=== PATIENT | male | born 1945 | race Caucasian/White ===

== ENCOUNTER 2017-04-26 08:29 | Outpatient (CLI) | payer MEDICARE, OTHER ==
[2017-04-26 12:40] LABS: INR 2.1 (0.8-1.2); PT - PROTHROMBIN TIME 23.8 secs (9.9-12.6)
== END 2017-04-26 08:30 | disposition home or self-care (01) ==
LOC: LAB.F 08:29
PROVIDERS: ATTEND Internal Medicine Interventional Cardiology
DX: I34.8 Other nonrheumatic mitral valve disorders (principal)
CPT/HCPCS: 36415; 85610

== ENCOUNTER 2017-05-10 07:46 | Outpatient (CLI) | payer MEDICARE, OTHER | END 2017-05-10 07:47 | disposition home or self-care (01) | LOC: LAB.F 07:46 | PROVIDERS: ATTEND Internal Medicine Interventional Cardiology | DX: I34.8 Other nonrheumatic mitral valve disorders (principal); Z79.01 Long term (current) use of anticoagulants | CPT/HCPCS: 85610 ==

== ENCOUNTER 2017-06-08 07:51 | Outpatient (CLI) | payer MEDICARE, OTHER | END 2017-06-08 07:52 | disposition home or self-care (01) | LOC: LAB.F 07:51 | PROVIDERS: ATTEND Internal Medicine Interventional Cardiology | DX: I34.8 Other nonrheumatic mitral valve disorders (principal); Z79.01 Long term (current) use of anticoagulants | CPT/HCPCS: 85610 ==

== ENCOUNTER 2017-11-16 08:28 | Outpatient (CLI) | payer MEDICARE, OTHER | END 2017-11-16 08:29 | disposition home or self-care (01) | LOC: LAB.F 08:28 | PROVIDERS: ATTEND Internal Medicine Interventional Cardiology | DX: I34.8 Other nonrheumatic mitral valve disorders (principal); Z79.01 Long term (current) use of anticoagulants | CPT/HCPCS: 85610 ==

== ENCOUNTER 2018-03-12 08:41 | Outpatient (CLI) | payer MEDICARE, OTHER | END 2018-03-12 08:42 | disposition home or self-care (01) | LOC: LAB.F 08:41 | PROVIDERS: ATTEND Internal Medicine Interventional Cardiology | DX: I34.8 Other nonrheumatic mitral valve disorders (principal); Z79.01 Long term (current) use of anticoagulants | CPT/HCPCS: 85610 ==

== ENCOUNTER 2020-04-21 09:59 | Outpatient (CLI) | payer MEDICARE, OTHER | END 2020-04-21 10:00 | disposition home or self-care (01) | LOC: LAB.S 09:59 | PROVIDERS: ATTEND Internal Medicine Interventional Cardiology | DX: I34.8 Other nonrheumatic mitral valve disorders (principal); Z79.01 Long term (current) use of anticoagulants | CPT/HCPCS: 85610 ==

== ENCOUNTER 2021-05-02 09:31 | Outpatient (CLI) | payer MEDICARE, OTHER | END 2021-05-02 09:32 | disposition home or self-care (01) | LOC: LAB.S 09:31 | PROVIDERS: ATTEND Internal Medicine Interventional Cardiology | DX: I34.8 Other nonrheumatic mitral valve disorders (principal); Z79.01 Long term (current) use of anticoagulants | CPT/HCPCS: 36416; 85610 ==

== ENCOUNTER 2021-06-13 07:45 | Outpatient (CLI) | payer MEDICARE, OTHER ==
[2021-06-13 15:00] LABS: BASOPHILS # (AUTO) 0.1 10^3/uL (0.0-0.1); BASOPHILS % (AUTO) 1.7 %; EOSINOPHILS # (AUTO) 0.2 10^3/uL (0.0-0.7); EOSINOPHILS % (AUTO) 3.9 %; HCT - HEMATOCRIT 45.5 % (42.0-52.0); LYMPHOCYTES # (AUTO) 1.3 10^3/uL (1.5-3.5); LYMPHOCYTES % (AUTO) 21.4 %; MEAN CORPUSCULAR HEMOGLOBIN 28.2 pg (27.0-31.0); MEAN CORPUSCULAR VOLUME 85.5 fL (80.0-94.0); MEAN PLATELET VOLUME 10.7 fL (7.4-11.4); MONOCYTES # (AUTO) 0.6 10^3/uL (0.0-1.0); MONOCYTES % (AUTO) 10.9 %; NEUTROPHILS # (AUTO) 3.6 10^3/uL (1.5-6.6); NEUTROPHILS % (AUTO) 61.6 %; PLT - PLATELET COUNT 229 10^3/uL (130-450); RED BLOOD COUNT 5.32 10^6/uL (4.70-6.10); RED CELL DISTRIBUTION WIDTH 14.6 % (12.0-15.0); WHITE BLOOD COUNT 5.9 x10^3/uL (4.8-10.8)
[2021-06-13 15:27] LABS: ALBUMIN 4.1 g/dL (3.2-5.5); ALBUMIN/GLOBULIN RATIO 1.4 (1.0-2.2); ALKALINE PHOSPHATASE 60 IU/L (42-121); ALT ALANINE AMINOTRANSFERASE 25 IU/L (10-60); AST ASPARTATE AMINOTRANSFERASE 28 IU/L (10-42); BILIRUBIN,TOTAL 0.9 mg/dL (0.2-1.0); BUN - BLOOD UREA NITROGEN 49 mg/dL (6-20); CALCIUM 9.2 mg/dL (8.5-10.3); CARBON DIOXIDE - CO2 26 mmol/L (21-32); CHLORIDE 104 mmol/L (101-111); CHOL/HDL RATIO 2.9 (<5.0); CHOLESTEROL 179 mg/dL; GFR - MDRD 33 (>89); GLUCOSE 105 mg/dL (70-100); HDL CHOLESTEROL 61 mg/dL; LDL CHOLESTEROL,CALCULATED 105 mg/dL; LDL/HDL RATIO 1.7 (<3.6); POTASSIUM 4.7 mmol/L (3.5-5.0); SODIUM 140 mmol/L (135-145); TRIGLYCERIDES 67 mg/dL; URIC ACID 6.3 mg/dL (2.6-7.2); VLDL CHOLESTEROL 13 mg/dL
== END 2021-06-13 07:46 | disposition home or self-care (01) ==
LOC: LAB.S 07:45
PROVIDERS: ATTEND Internal Medicine Interventional Cardiology
DX: I34.8 Other nonrheumatic mitral valve disorders (principal); Z79.01 Long term (current) use of anticoagulants; N18.4 Chronic kidney disease, stage 4 (severe); E78.2 Mixed hyperlipidemia; Z85.46 Personal history of malignant neoplasm of prostate
CPT/HCPCS: 36415; 80053; 80061; 83721; 83970; 84100; 84153; 84550; 85025; 85610

== ENCOUNTER 2021-07-25 10:15 | Outpatient (CLI) | payer MEDICARE, OTHER | END 2021-07-25 10:16 | disposition home or self-care (01) | LOC: LAB.S 10:15 | PROVIDERS: ATTEND Internal Medicine Interventional Cardiology | DX: I34.8 Other nonrheumatic mitral valve disorders (principal); Z79.01 Long term (current) use of anticoagulants | CPT/HCPCS: 36416; 85610 ==

== ENCOUNTER 2021-08-08 09:31 | Outpatient (CLI) | payer MEDICARE, OTHER | END 2021-08-08 09:32 | disposition home or self-care (01) | LOC: LAB.S 09:31 | PROVIDERS: ATTEND Internal Medicine Interventional Cardiology | DX: I34.8 Other nonrheumatic mitral valve disorders (principal); Z79.01 Long term (current) use of anticoagulants | CPT/HCPCS: 36416; 85610 ==

== ENCOUNTER 2023-02-20 14:10 | Outpatient (CLI) | payer MEDICARE, OTHER | END 2023-02-20 14:11 | disposition home or self-care (01) | LOC: LAB.S 14:10 | PROVIDERS: ATTEND Internal Medicine Interventional Cardiology | DX: Z79.01 Long term (current) use of anticoagulants (principal) | CPT/HCPCS: 36416; 85610 ==

== ENCOUNTER 2023-05-07 13:20 | Outpatient (CLI) | payer MEDICARE, OTHER | END 2023-05-07 13:21 | disposition home or self-care (01) | LOC: LAB.S 13:20 | PROVIDERS: ATTEND Internal Medicine Interventional Cardiology | DX: Z79.01 Long term (current) use of anticoagulants (principal) | CPT/HCPCS: 36416; 85610 ==

== ENCOUNTER 2023-06-08 11:18 | Outpatient (CLI) | payer MEDICARE, OTHER | END 2023-06-08 11:19 | disposition home or self-care (01) | LOC: LAB.S 11:18 | PROVIDERS: ATTEND Internal Medicine Interventional Cardiology | DX: Z79.01 Long term (current) use of anticoagulants (principal) | CPT/HCPCS: 36416; 85610 ==

== ENCOUNTER 2023-06-22 11:08 | Outpatient (CLI) | payer MEDICARE, OTHER | END 2023-06-22 11:09 | disposition home or self-care (01) | LOC: LAB.S 11:08 | PROVIDERS: ATTEND Internal Medicine Interventional Cardiology | DX: Z79.01 Long term (current) use of anticoagulants (principal) | CPT/HCPCS: 36416; 85610 ==

== ENCOUNTER 2024-04-14 13:27 | Outpatient (CLI) | payer MEDICARE, OTHER | END 2024-04-14 13:28 | disposition home or self-care (01) | LOC: LAB.S 13:27 | PROVIDERS: ATTEND Internal Medicine Interventional Cardiology | DX: Z51.81 Encounter for therapeutic drug level monitoring (principal); Z79.01 Long term (current) use of anticoagulants | CPT/HCPCS: 36416; 85610 ==

== ENCOUNTER 2024-05-28 13:36 | Outpatient (CLI) | payer MEDICARE, OTHER | END 2024-05-28 13:37 | disposition home or self-care (01) | LOC: LAB.S 13:36 | PROVIDERS: ATTEND Internal Medicine Interventional Cardiology | DX: Z79.01 Long term (current) use of anticoagulants (principal) | CPT/HCPCS: 36416; 85610 ==

== ENCOUNTER 2024-06-12 10:00 | Outpatient (CLI) | payer MEDICARE, OTHER | END 2024-06-12 10:01 | disposition home or self-care (01) | LOC: LAB 10:00 | PROVIDERS: ATTEND Internal Medicine Interventional Cardiology | DX: Z79.01 Long term (current) use of anticoagulants (principal) | CPT/HCPCS: 36416; 85610 ==

== ENCOUNTER 2024-06-18 11:58 | Outpatient (CLI) | payer MEDICARE, OTHER | END 2024-06-18 11:59 | disposition home or self-care (01) | LOC: LAB 11:58 | PROVIDERS: ATTEND Internal Medicine Interventional Cardiology | DX: Z51.81 Encounter for therapeutic drug level monitoring (principal); Z79.01 Long term (current) use of anticoagulants | CPT/HCPCS: 36416; 85610 ==

== ENCOUNTER 2024-07-02 11:52 | Outpatient (CLI) | payer MEDICARE, OTHER | END 2024-07-02 11:53 | disposition home or self-care (01) | LOC: LAB 11:52 | PROVIDERS: ATTEND Internal Medicine Interventional Cardiology | DX: Z51.81 Encounter for therapeutic drug level monitoring (principal); Z79.01 Long term (current) use of anticoagulants | CPT/HCPCS: 36416; 85610 ==